=== PATIENT | male | born 1990 | race Two or more races ===

== ENCOUNTER 2020-11-16 11:42 | Inpatient (IN) | payer OTHER ==
[~2020-11-16] VITALS: Ht 185.4 cm; Wt 102.1 kg
[2020-11-16] VITALS (32 sets, daily range): BP systolic 70–134; BP diastolic 18–65
[2020-11-16] MEDS ORDERED: THIAMINE 100mg/ml INJ (200mg/2ml VIAL) IV ONE (12:00)
[2020-11-16] MEDS ORDERED: SODIUM CHLORIDE 0.9% 1,000 ML IV ONE ×2 (12:00→17:15)
[2020-11-16] MEDS ORDERED: PANTOPRAZOLE 40mg/50ML NS AE 50 ML IV ONE (12:00)
[2020-11-16] MEDS ORDERED: LACTULOSE 20Gm/30ML SOLN PO ONE (12:00)
[2020-11-16] MEDS: OCTREOTIDE ACETATE 500 MCG in SODIUM CHL 0.9% 99 ML IV SCH ×2 (12:59→22:00)
[2020-11-16 13:04] LABS: Mean Corpuscular Volume 107.2 fL (80.0-100.0)
[2020-11-16 13:06] LABS: Hematocrit 12.9 % (41.0-53.0); Mean Corpuscular Hemoglobin 38.2 pg (28.0-32.0); Mean Corpuscular Hgb Conc. 35.6 g/dL (32.0-36.0); Platelet Count (auto) 153 10^3/uL (140-450); Red Cell Distribution Width 19.1 % (11.8-14.3); White Blood Cell 20.3 10^3/uL (4.4-10.8)
[2020-11-16] MEDS ORDERED: METOCLOPRAMIDE HCL 5MG/ml INJ 2ml VIAL IV ONE (13:15)
[2020-11-16 13:21] LABS: Hemoglobin 4.6 g/dL (13.5-17.5)
[2020-11-16 13:23] LABS: Basophils % (manual) 0 (0.0-2.0); Blast Cells 0; INR 2.11 (0.9-1.15); Myelocytes % 0; Partial Thromboplastin Time 54.9 sec (23.0-31.2); Promyelocytes % 0; Reactive Lymphocytes 0
[2020-11-16 13:28] LABS: Albumin 1.2 g/dL (3.4-5.0); Anion Gap 13 (5-15); Blood Urea Nitrogen 45 mg/dL (7-18); Calcium 6.8 mg/dL (8.5-10.1); Carbon Dioxide 20 mmol/L (21-32); Chloride 96 mmol/L (98-107); Glucose 109 mg/dL (74-106); Potassium 3.2 mmol/L (3.5-5.1); Sodium 129 mmol/L (136-145)
[2020-11-16] MEDS ORDERED: cefTRIAXone 1GM/50ML D5W 50 ML IV ONE (13:30)
[2020-11-16 13:31] LABS: Lactic Acid w/Reflex 6.1 mmol/L (0.4-2.0)
[2020-11-16] MEDS ORDERED: SUCCINYLCHOLINE CHLORIDE 20 MG/ML 10ML VIAL IV ONE ×2 (13:34→14:30)
[2020-11-16] MEDS ORDERED: ETOMIDATE (2MG/ML) 20ML VIAL IV ONE ×2 (13:34→14:30)
[2020-11-16 13:35] LABS: Alanine Aminotransferase 68 U/L (16-61); Alkaline Phosphatase 145 U/L (45-117); Aspartate Aminotransferase 183 U/L (15-37); GFR African American 46 mL/min; GFR Non-African American 38 mL/min; Total Protein 5.1 g/dL (6.4-8.2)
[2020-11-16] MEDS ORDERED: MIDAZOLAM DRIP 50 mg/50mL 50 ML IV ONE (13:35)
[2020-11-16 13:40] LABS: BUN/Creatinine Ratio 20.8
[2020-11-16] MEDS ORDERED: NOREPINEPHRINE 8 MG/250ML KIT 250 ML IV ONE (13:50)
[2020-11-16 13:55] LABS: Band Neutrophils % (manual) 4; Eosinophils % (manual) 1 (0-7); Lymphocytes % (manual) 18 (10.0-50.0); Metamyelocytes % 1; Monocytes % (manual) 17 (0-12)
[2020-11-16] MEDS ORDERED: NOREPINEPHRINE 8 MG/250ML KIT 250 ML IV SCH (14:30)
[2020-11-16] MEDS ORDERED: MIDAZOLAM DRIP 50 mg/50mL 50 ML IV SCH (14:30)
[2020-11-16 14:51] LABS: Urine Amorphous Crystal MANY /hpf (None Seen); Urine Bacteria FEW /hpf (None Seen); Urine Blood TRACE /uL (Negative); Urine Mucus FEW (None Seen); Urine Specific Gravity 1.017 (1.001-1.035); Urine WBC 4 /hpf (0 - 3)
[2020-11-16] MEDS ORDERED: fentaNYL Drip 2500mCg/250mlNS 250 ML IV SCH (15:00)
[2020-11-16] MEDS ORDERED: NITROGLYCERIN 0.4 MG SL TAB SL PRN (15:00)
[2020-11-16] MEDS ORDERED: MORPHINE SULF INJ 2 MG/ML SYRINGE 1ML IV PRN (15:00)
[2020-11-16] MEDS ORDERED: FOLIC ACID 1 MG, MULTIPLE VITAMIN 10 ML, MAGNESIUM SULF SDV 50% 8 MEQ, THIAMINE INJ 100... INJ SCH ×5 (15:02)
[2020-11-16] MEDS ORDERED: phytonadione 10 MG in SODIUM CHL 0.9% 50 ML IV ONE (16:00)
[2020-11-16] MEDS ORDERED: PHENYLEPHRINE IV 250 ML IV SCH (17:30)
[2020-11-16] MEDS ORDERED: VASOPRESSIN 20 UNIT/ML ONE (19:54)
[2020-11-16] MEDS: VASOPRESSIN 50 UNITS in D5W 5% 247.5 ML IV SCH (20:00)
[2020-11-16] MEDS ORDERED: SODIUM BICARBONATE 50ML VIAL 150 ML in D5W/SOD CHL 0.45% 1,000 ML IV SCH ×2 (20:45→23:45)
[2020-11-16] MEDS ORDERED: SODIUM BICARBONATE 8.4 % INJ 50ML VIAL IV ONE ×2 (20:45→23:45)
[2020-11-16] MEDS ORDERED: SODIUM BICARBONATE 8.4% INJ 50ML SYRINGE ONE ×2 (20:46→23:43)
[2020-11-16] MEDS ORDERED: PANTOPRAZOLE 40 MG/10 ML VIAL INJ IV SCH (22:00)
[2020-11-16] MEDS ORDERED: metroNIDAZOLE 500MG/100ML 100 ML IV SCH (22:00)
[2020-11-16 23:22] LABS: Hematocrit 8.9 % (41.0-53.0)
[2020-11-16 23:24] LABS: Hemoglobin 2.5 g/dL (13.5-17.5)
[2020-11-16] MEDS ORDERED: EPINEPHrine HCL 250 ML IV ONE (23:24)
[2020-11-16] MEDS ORDERED: EPINEPHrine HCL 250 ML IV SCH (23:30)
[2020-11-17] MEDS: VASOPRESSIN 50 UNITS in D5W 5% 247.5 ML IV SCH (00:10)
[2020-11-17] MEDS ORDERED: DOPamine 1600MCG/ML D5W 250 ML IV ONE (00:17)
[2020-11-17] MEDS ORDERED: DOPamine 1600MCG/ML D5W 250 ML IV SCH (00:30)
[2020-11-17 00:43] LABS: Partial Thromboplastin Time 28.3 sec (23.0-31.2)
[2020-11-17 00:45] LABS: INR 4.69 (0.9-1.15)
[2020-11-17] MEDS ORDERED: SODIUM BICARBONATE 8.4% INJ 50ML SYRINGE ONE ×4 (01:09→05:31)
[2020-11-17] MEDS ORDERED: SODIUM BICARBONATE 8.4 % INJ 50ML VIAL IV ONE ×2 (01:15→05:21)
[2020-11-17] MEDS ORDERED: PANTOPRAZOLE 40mg/50ML NS AE 50 ML IV SCH (01:15)
[2020-11-17] MEDS ORDERED: VASOPRESSIN 20 UNIT/ML ONE ×2 (02:30→04:10)
[2020-11-17] MEDS ORDERED: cefTRIAXone 1GM/50ML D5W 50 ML IV SCH (09:00)
[2020-11-17] MEDS ORDERED: SODIUM BICARBONATE 8.4% INJ 50ML SYRINGE IV ONE (12:35)
[2020-11-17] MEDS ORDERED: EPINEPHrine HCL 1 MG/10 ML SYRG IV ONE (12:35)
[2020-11-17] MEDS ORDERED: CALCIUM CHLOR(10%) 100MG/ML 10ML SYRINGE IV ONE (12:35)
== END 2020-11-17 11:10 | DRG 432 ==
LOC: EDBD 11:42 → ER 11:42 → TELE 14:59 → ICU WEST 17:12
PROVIDERS: ADMIT Nurse Practitioner Acute Care; ATTEND Internal Medicine
PROC: 30233K1 Transfusion of Nonautologous Frozen Plasma into Peripheral Vein, Percutaneous Approach (ICD-10-PCS; principal; 2020-11-16)
PROC: 30233N1 Transfusion of Nonautologous Red Blood Cells into Peripheral Vein, Percutaneous Approach (ICD-10-PCS; 2020-11-16)
PROC: 0BH17EZ Insertion of Endotracheal Airway into Trachea, Via Natural or Artificial Opening (ICD-10-PCS; 2020-11-16)
PROC: 5A1935Z Respiratory Ventilation, Less than 24 Consecutive Hours (ICD-10-PCS; 2020-11-16)
PROC: 05HY33Z Insertion of Infusion Device into Upper Vein, Percutaneous Approach (ICD-10-PCS; 2020-11-16)
PROC: 5A12012 Performance of Cardiac Output, Single, Manual (ICD-10-PCS; 2020-11-17)
DX: K70.31 Alcoholic cirrhosis of liver with ascites (principal); I85.11 Secondary esophageal varices with bleeding; E43 Unspecified severe protein-calorie malnutrition; J96.00 Acute respiratory failure, unspecified whether with hypoxia or hypercapnia; K76.6 Portal hypertension; E87.6 Hypokalemia; F10.20 Alcohol dependence, uncomplicated; F17.210 Nicotine dependence, cigarettes, uncomplicated; D72.829 Elevated white blood cell count, unspecified; Z20.822 Contact with and (suspected) exposure to COVID-19; I46.9 Cardiac arrest, cause unspecified
CPT/HCPCS: 36415; 36600; 71045; 74176; 80053; 81001; 82805; 82962; 83605; 83880; 84484; 85007; 85014; 85018; 85027; 85384; 85610; 85730; 86850; 86900; 86901; 86920; 87040; 87070; 87077; 87081; 87186; 87205; 87426; 93005; 94002; 96365; 96367; 96375; 99291; C9113; G0378; J0171; J0330; J0696; J2250; J3430; J7060